=== PATIENT | female | born 1955 | race Caucasian/White ===

== ENCOUNTER 2021-02-05 08:32 | Emergency (ER) | payer MEDICARE, MEDICAID, SELFPAY ==
[2021-02-05 08:48] VITALS: BP 139/82; PULSE 87; RESP 16; TEMP 37.2; O2SAT 99
--- NOTE | 2021-02-05 09:49 | ED.URI ---
HPI - URI/Sore Throat General Chief Complaint: Upper Respiratory Infection Stated Complaint: Sore throat Time Seen by Provider: 02/05/21 09:38 Source: patient and RN notes reviewed Mode of arrival: ambulatory Limitations: no limitations History of Present Illness HPI Narrative: Patient presents today complaining of a sore throat, only when she swallows. Woke up with a sore throat this morning. Patient has COPD with a chronic cough, and denies any additional symptoms. She currently rates her pain 6/10 and has tried no medication for symptoms prior to arrival. MD elicited complaint: sore throat Related Data Home Medications Medication Instructions Recorded Confirmed albuterol 90 mcg INHALATION PRN 02/05/21 alendronate 70 mg PO WEEKLY 02/05/21 02/05/21 atorvastatin 40 mg PO DAILY 02/05/21 02/05/21 cyclobenzaprine 10 mg PO TID 02/05/21 02/05/21 duloxetine [Cymbalta] 60 mg PO DAILY 02/05/21 02/05/21 fluoxetine [Prozac] 20 mg PO DAILY 02/05/21 02/05/21 gabapentin 600 mg PO TID 02/05/21 02/05/21 hydrocodone-acetaminophen 1 tablet PO PRN 02/05/21 lorazepam 0.5 mg PO TID PRN 02/05/21 02/05/21 omeprazole [Prilosec] 20 mg PO DAILY 02/05/21 02/05/21 Allergies Allergy/AdvReac Type Severity Reaction Status Date / Time tramadol AdvReac Other Verified 02/05/21 09:34 Review of Systems Review of Systems: CONSTITUTIONAL: Denies body aches, fever, chills, or sweats. EYES: Denies visual changes, redness, or discharge. ENT: Denies rhinorrhea, congestion,or otalgia.+ Sore throat CARDIOVASCULAR: Denies chest pain, palpitations, or edema. RESPIRATORY: Denies cough or dyspnea. GASTROINTESTINAL: Denies abdominal pain, nausea, vomiting, or diarrhea. GENITOURINARY: Denies dysuria or hematuria. SKIN: Denies rash, itching, or wounds. MUSCULOSKELETAL: Denies back pain, joint pain, or myalgia. NEUROLOGIC: Denies headache, numbness, tingling, or weakness. PSYCH: Denies depression or anxiety. [facility] Past Medical History Medical History (Updated 02/05/21 @ 09:53 by Poppy Borges, [facility], ) Anxiety COPD (chronic obstructive pulmonary disease) GERD (gastroesophageal reflux disease) High cholesterol Osteoporosis Comments At time of signature, I have reviewed and agree with nursing past medical, surgical, social and family history unless otherwise noted. Please see nursing chart for further information. There is no relevant family history pertinent to the presenting complaint Exam Narrative: GENERAL: Well-appearing, well-nourished, and in no acute distress. HEAD: Normocephalic, atraumatic. EYES: EOMI. No redness or drainage. Conjunctivae normal. ENT: Mucous membranes pink and moist. Nares clear. No rhinorrhea. TMs normal bilaterally. Throat mildly erythematous without edema or exudate. Uvula midline. NECK: Normal AROM. Supple. Right posterior cervical chain lymphadenopathy. CHEST: No respiratory distress. Clear to auscultation. HEART: Regular rate and rhythm. No murmur appreciated. Normal peripheral pulses. EXTREMITIES: Normal range of motion. No edema. SKIN: Warm, dry, no rash. Capillary refill normal. Normal skin turgor. NEURO: No focal deficits. Alert and oriented x3. Gait steady. PSYCH: Normal affect. No signs of depression or anxiety. Course Vital Signs Vital signs: Vital Signs Temperature 99.0 F 02/05/21 08:48 Pulse Rate 87 02/05/21 08:48 Respiratory Rate 16 02/05/21 08:48 Blood Pressure 139/82 02/05/21 08:48 Pulse Oximetry 99 02/05/21 08:48 Temperature 99.0 F 02/05/21 08:48 Pulse Rate 87 02/05/21 08:48 Respiratory Rate 16 02/05/21 08:48 Blood Pressure 139/82 02/05/21 08:48 Pulse Oximetry 99 02/05/21 08:48 Reviewed. Pt has been instructed to follow up with her PCP regarding her elevated blood pressure today. MDM - URI/Sore Throat Differential Diagnosis Differential diagnosis: Likely upper respiratory infection, otitis media, pharyngitis and other (Tonsillitis, strep throat)
== END 2021-02-05 10:00 | disposition home or self-care (01) ==
PROVIDERS: Emergency Provider Nurse Practitioner
DX: J02.9 Acute pharyngitis, unspecified (principal); K21.9 Gastro-esophageal reflux disease without esophagitis; E78.00 Pure hypercholesterolemia, unspecified; M81.0 Age-related osteoporosis without current pathological fracture; J44.9 Chronic obstructive pulmonary disease, unspecified; F41.9 Anxiety disorder, unspecified
CPT/HCPCS: 87081; 87880; 99203; G0463

== ENCOUNTER 2021-02-07 14:30 | Emergency (ER) | payer MEDICARE, MEDICAID, SELFPAY ==
[2021-02-07 14:37] VITALS: BP 124/100; PULSE 88; RESP 18; TEMP 36.8; O2SAT 97
--- NOTE | 2021-02-07 16:20 | ED.GENADULT ---
HPI - General Adult General Chief complaint: Unspecified Stated complaint: SORE THROAT Time Seen by Provider: 02/07/21 15:20 Source: patient Mode of arrival: ambulatory Limitations: no limitations History of Present Illness HPI narrative: Patient is a 65-year-old female with chief complaint of sore throat, nose and ear congestion that began on 02-05-21. Patient states on 02-05-21 she presented to the urgent care for evaluation and was swabbed for strep which was negative. Patient reports that her throat is uncomfortable with swallowing and she has not been sick for many years and does not like this. She reports that she has been using throat lozenges and taking Tylenol and ibuprofen. She denies having fevers, chills or difficulty swallowing. She does report that it is uncomfortable to swallow. Patient denies voice changes. Patient reports that she contacted the urgent care today to let them know that she still had a sore throat and they informed her that her throat culture was negative. Related Data Home Medications Medication Instructions Recorded Confirmed albuterol 90 mcg INHALATION PRN 02/05/21 alendronate 70 mg PO WEEKLY 02/05/21 02/05/21 atorvastatin 40 mg PO DAILY 02/05/21 02/05/21 cyclobenzaprine 10 mg PO TID 02/05/21 02/05/21 duloxetine [Cymbalta] 60 mg PO DAILY 02/05/21 02/05/21 fluoxetine [Prozac] 20 mg PO DAILY 02/05/21 02/05/21 gabapentin 600 mg PO TID 02/05/21 02/05/21 hydrocodone-acetaminophen 1 tablet PO PRN 02/05/21 lorazepam 0.5 mg PO TID PRN 02/05/21 02/05/21 omeprazole [Prilosec] 20 mg PO DAILY 02/05/21 02/05/21 Allergies Allergy/AdvReac Type Severity Reaction Status Date / Time tramadol AdvReac Other Verified 02/07/21 15:12 Review of Systems Review of Systems: CONSTITUTIONAL: Denies fever, chills, or sweats. EYES: Denies visual changes, redness, or discharge. ENT: Reports sore throat and congestion denies rhinorrhea or otalgia. CARDIOVASCULAR: Denies chest pain, palpitations, or edema. RESPIRATORY: Denies cough or dyspnea. GASTROINTESTINAL: Denies abdominal pain, nausea, vomiting, or diarrhea. GENITOURINARY: Denies dysuria or hematuria. SKIN: Denies rash or itching. MUSCULOSKELETAL: Denies back pain, joint pain, or myalgia. NEUROLOGIC: Denies headache, numbness, dizziness, or weakness. PSYCHIATRIC: Denies anxiety or depression. [facility] Past Medical History Medical History (Updated 02/07/21 @ 16:26 by Holland Davis PA-C) Anxiety COPD (chronic obstructive pulmonary disease) GERD (gastroesophageal reflux disease) High cholesterol Osteoporosis Exam Narrative: GENERAL: Well-appearing, well-nourished, and in no acute distress. HEAD: Normocephalic, atraumatic. EYES: PERRLA and EOMI. ENT: Nares clear, no rhinorrhea or epistaxis. Mild nasal congestion and erythema. Mucous membranes moist. Oropharynx with mild tonsillar erythema without exudate or other lesions. Uvula is midline. bilateral TMs pearly menendez nonbulging. Handling her own secretions without difficulty. NECK: Supple. No adenopathy or masses. Range of motion intact. CHEST: Clear to auscultation. No respiratory distress. Occasional faint expiratory wheezes cleared with coughing no rales or rhonchi EXTREMITIES: Normal range of motion. No edema. SKIN: Warm, dry, no rash. NEURO: No focal deficits. Alert and oriented x3. PSYCH: Normal mood and affect. Course Vital Signs Vital signs: Vital Signs Temperature 98.2 F 02/07/21 14:37 Pulse Rate 88 02/07/21 14:37 Respiratory Rate 18 02/07/21 14:37 Blood Pressure 124/100 H 02/07/21 14:37 Pulse Oximetry 97 02/07/21 14:37 Temperature 98.2 F 02/07/21 14:37 Pulse Rate 88 02/07/21 14:37 Respiratory Rate 18 02/07/21 14:37 Blood Pressure 124/100 H 02/07/21 14:37 Pulse Oximetry 97 02/07/21 14:37 Medical Decision Making MDM Narrative Medical decision making narrative: Reviewed urgent care note and patient is strep culture. It is in fact negative. Disc
== END 2021-02-07 16:34 | disposition home or self-care (01) ==
PROVIDERS: Emergency Provider Emergency Medicine
DX: B34.9 Viral infection, unspecified (principal); F41.9 Anxiety disorder, unspecified; J44.9 Chronic obstructive pulmonary disease, unspecified; K21.9 Gastro-esophageal reflux disease without esophagitis; E78.5 Hyperlipidemia, unspecified
CPT/HCPCS: 99283